=== PATIENT | female | born 1980 | race American Indian/Alaskan Native ===

== ENCOUNTER 2017-07-16 13:09 | Emergency (ER) | payer SELFPAY ==
[2017-07-16] MEDS ORDERED: Ondansetron ODT 4 MG TAB ONE (13:37)
[2017-07-16] MEDS ORDERED: Metoclopramide HCl 10 MG TAB ONE (13:38)
[2017-07-16] MEDS ORDERED: Diphenoxylate HCl/Atropine Tablet ONE (14:44)
== END 2017-07-16 14:55 | disposition home or self-care (01) ==
LOC: MADERS 13:09
DX: R11.0 Nausea (principal)
CPT/HCPCS: 99283; Q0162

== ENCOUNTER 2020-12-30 18:10 | Emergency (ER) | payer SELFPAY | END 2020-12-30 20:09 | disposition home or self-care (01) | LOC: MADERS 18:10 | DX: R05 Cough (principal); Z20.822 Contact with and (suspected) exposure to COVID-19; F17.210 Nicotine dependence, cigarettes, uncomplicated | CPT/HCPCS: 99281 ==